=== PATIENT | female | born 1995 | race Asian ===

== ENCOUNTER 2017-04-30 21:19 | Emergency (ER) | payer OTHER ==
[~2017-04-30] VITALS: Ht 147.3 cm; Wt 61.5 kg
[2017-04-30 21:22] VITALS: Ht 147.3 cm; Wt 61.5 kg
[2017-04-30] MEDS ORDERED: ACETAMINOPHEN 500 MG TAB PO STA (21:42)
--- NOTE | 2017-04-30 22:10 | DIAGNOSTIC IMAGING REPORT ---
HEAD WITHOUT CONTRAST (CT) CT DOSE: 537.48 mGy.cm HISTORY: Trauma eval trauma TECHNIQUE: Multiaxial CT images of the head were performed without the use of intravenous contrast. A dose lowering technique was utilized adhering to the principles of ALARA. Comparison: None. Findings: The paranasal sinuses and mastoid air cells are clear. The calvarium and skull base are intact. The ventricles and sulci are within normal limits. There is no mass, hematoma, midline shift, or acute infarct. Impression: No acute intracranial abnormality. The above report was generated using voice recognition software. It may contain grammatical, syntax or spelling errors. Electronically signed by: Marco Antonio King M.D. 04/30/2017 10:09 PM Dictated Date/Time: 04/30/2017 10:08 PM
[2017-04-30] MEDS ORDERED: BCPILLS PO (22:25)
--- NOTE | 2017-04-30 23:19 | EMERGENCY ROOM VISIT NOTE ---
ED Visit Note First contact with patient: 21:31 CHIEF COMPLAINT: Head injury HISTORY OF PRESENT ILLNESS: This 21-year-old female patient presented to the emergency department by private vehicle with her boyfriend after receiving a head injury approximately 8:15 PM this evening. Patient was at a gymnastics practice, was doing a floor routine and fell, hitting the back of her head. According to the boyfriend, her head wrestling coach states that she had a brief loss of consciousness and was "kind of out of it afterwards." Patient states that she cannot remember anything after starting her for routine until the ambulance crew arrived to evaluate her. There has been no vomiting. The patient complains of headache only. The patient denies nausea, blurry or double vision , neck pain, dizziness or feeling off balance. The headache has been mild, throbbing, constant, she rates this as 3/10. The patient has taken no medications for the pain. The patient denies bowel or bladder dysfunction. The patient denies any other injuries. She denies any other symptoms of chest pain, shortness of breath, back pain, abdominal pain, dysuria or hematuria, numbness or weakness of the extremities, or rash. She denies any recent fevers or chills. REVIEW OF SYSTEMS: A complete 10 point review of systems was reviewed with the patient with pertinent positives and negatives as per history of present illness. All else were negative. ALLERGIES: Reviewed in chart. MEDICATIONS: Oral contraceptives PMH: No significant past medical or surgical history. Up-to-date on immunizations. SOCIAL HISTORY: Lives at home. She has a [employer] student. She denies tobacco use, alcohol or recreational drug use. PHYSICAL EXAM: Vital Signs: Reviewed Nurse's notes, vital signs stable. GENERAL : Pleasant and cooperative, in no acute distress but tearful on exam, well- developed, well-nourished. NEURO: The patient is alert, oriented to person place and time, and coherent. Normal mini mental status exam. Negative Romberg and pronator drift. Cranial nerves II through XII grossly intact. No facial droop. 5/5 strength in all 4 extremities. Sensation intact to light touch. Qbliru-gqev-zwkphl testing normal. Normal heel and toe gait. HEAD: Normocephalic, atraumatic. No scalp contusions, hematomas or abrasions. No gonzalez sign or raccoon eyes. EYES: PERRL, EOMI. There is no swelling or discoloration of the tissue surrounding the eyes. EARS: External auditory canals clear without blood. NOSE: Patent without tenderness. No septal hematoma. FACE: No facial bone tenderness. NECK: Supple. There is no cervical spine tenderness. The patient does not have tenderness with movement of the neck. HEART: Regular rate and rhythm, no murmurs, gallops, or rubs. Normal peripheral perfusion, no edema. LUNGS: Clear to auscultation bilaterally with no wheezes, rhonchi, or rales. No chest wall tenderness. ABDOMEN: Soft, nontender, nondistended. Normal bowel sounds throughout. IMAGING: HEAD WITHOUT CONTRAST (CT) CT DOSE: 537.48 mGy.cm HISTORY: Trauma eval trauma TECHNIQUE: Multiaxial CT images of the head were performed without the use of intravenous contrast. A dose lowering technique was utilized adhering to the principles of ALARA. Comparison: None. Findings: The paranasal sinuses and mastoid air cells are clear. The calvarium and skull base are intact. The ventricles and sulci are within normal limits. There is no mass, hematoma, midline shift, or acute infarct. Impression: No acute intracranial abnormality. ED COURSE: I examined the patient. Differential diagnosis includes head contusion, hematoma, concussion, skull fracture, intracranial hemorrhage, cerebral edema, among others. Given the report of loss of consciousness and memory loss, decision was made to perform CT of the head, this was reviewed and was found to be normal. The patient was given Tylenol for headache, she reports improvement in this. Patient was educated regarding concussion management, follow-up, and return precautions should her symptoms worsen, she verbalized understanding. The patient was discharged home in stable condition and ambulatory. Current/Historical Medications Scheduled Control Pills ( Control Pills), 1 TAB PO DAILY Allergies Coded Allergies: Diphenhydramine (Unverified Allergy, Severe, HIVES/VIOLENT, 04/30/17) Vital Signs Date Time Temp Pulse Resp B/P (MAP) Pulse Ox O2 Delivery O2 Flow Rate FiO2 04/30/17 23:27 72 18 128/77 98 04/30/17 22:36 73 20 126/80 98 Room Air 04/30/17 21:25 18 04/30/17 21:22 63 18 130/85 95 Room Air Laboratory Results Test 04/30/17 21:54 Urine Test NEG (NEG) Medications Administered Medications (Trade) Dose Ordered Sig/Nahomy Route Start Time Stop Time Status Last Admin Dose Admin Acetaminophen (Tylenol Tab) 1,000 mg NOW STAT PO 04/30/17 21:42 04/30/17 21:43 DC 04/30/17 21:49 1,000 MG Departure Information Impression Primary Impression: Concussion Additional Impression: Closed head injury Dispostion Home / Self-Care Condition GOOD Referrals [facility] (PCP) Patient Instructions ED [facility] Additional Instructions You were evaluated and treated in the emergency department for your head injury. CT imaging today is normal. You most likely have a concussion. It is important to observe both physical and cognitive rest while recovering from a concussion. Physical rest includes no significant physical activity or exertion, heavy lifting over 10 pounds, and increasing sleep and nap times throughout the day as needed. Cognitive rest includes taking breaks from prolonged screen time including TV, tablets, phone, or prolonged periods of talking on the telephone or reading. You should relax in a quiet, dark place for the rest of the day. Try to get a good 8-10 hours of sleep tonight. Avoid any possible triggers including: cigarette smoke, caffeine, nicotine, chocolate, wine, beer, loud noises or music , or bright lights. For pain control, you can use the following [id number] medicines (if >12 yo): -Extra strength (500 mg/tab) Tylenol (acetaminophen) 2 tabs every 8 hours as needed. Do not exceed 6 tablets in a 24 hour period. Avoid taking more than 3000 mg of Tylenol per day. This includes any other sources of acetaminophen you may take on a regular basis. - Regular strength (200 mg/tab) Advil (ibuprofen) 2 tabs every 4-6 hours as needed. Do not exceed a dose of 2400 mg per day. Follow-up with your PCP or [facility] in the next few days to be rechecked. Please return to the ER for any worsening symptoms, including severe worsening headache, persistent vomiting, vision changes, confusion, memory problems, numbness or weakness on one side of the body, balance issues or difficulty walking, or any other concerns. School Instructions Return To School: 2 days Problem Qualifiers Primary Impression: Concussion Encounter type: initial encounter Loss of consciousness presence/duration: with LOC of 30 min or less Qualified Codes: S06.0X1A - Concussion with loss of consciousness of 30 minutes or less, initial encounter Additional Impression: Closed head injury Encounter type: initial encounter Qualified Codes: S09.90XA - Unspecified injury of head, initial encounter
[2017-04-30 23:27] VITALS: BP 128/77; PULSE 72; O2SAT 98
== END 2017-04-30 23:28 | disposition home or self-care (01) ==
LOC: C.EDB 21:21 → C.EDD 23:28
DX: S06.0X9A Concussion with loss of consciousness of unspecified duration, initial encounter (principal); W01.198A Fall on same level from slipping, tripping and stumbling with subsequent striking against other object, initial encounter; Y93.43 Activity, gymnastics; Z79.3 Long term (current) use of hormonal contraceptives; Z88.6 Allergy status to analgesic agent

== ENCOUNTER → 2017-05-26 | Outpatient (CLI) | payer OTHER ==
[~2017-05-26] MED LIST: BCPILLS PO
== END | disposition home or self-care (01) ==
LOC: C.RDSM 09:13
PROVIDERS: ATTEND Family Medicine
DX: M25.571 Pain in right ankle and joints of right foot (principal)